=== PATIENT | female | born 1955 | race Caucasian/White ===

== ENCOUNTER 2019-06-29 09:02 | Outpatient (CLI) | payer MEDICARE, SELFPAY ==
--- NOTE | 2019-06-29 09:09 | MM_ITS ---
WS: [id number] BILATERAL DIGITAL SCREENING MAMMOGRAPHY WITH CAD CLINICAL INFORMATION: SCREENING HISTORY: Sore left breast COMPARISON: TECHNIQUE: Bilateral CC and MLO views. FINDINGS: The breasts are composed of heterogeneous fibroglandular density tissue, which can limit the detectio n of small underlying mass lesions. No suspicious mass, asymmetry, calcifications, or architectural d istortion. No evidence of malignancy. MM/[place] [id number] IMPRESSION: BI-RADS: 1-Negative FOLLOW UP: 1 Year Follow-up Recommend return to annual screening mammography.
== END 2019-06-29 09:03 | disposition home or self-care (01) ==
LOC: RADSHAW 09:07
PROVIDERS: Family Provider Internal Medicine; PCP Internal Medicine; Visit Provider Internal Medicine
DX: Z12.31 Encounter for screening mammogram for malignant neoplasm of breast (principal)
CPT/HCPCS: 77067

== ENCOUNTER → 2019-12-26 11:31 | Outpatient (BNVA) | payer MEDICARE, SELFPAY | PROVIDERS: Family Provider Internal Medicine; PCP Internal Medicine; Visit Provider Nurse Practitioner Family | DX: J06.9 Acute upper respiratory infection, unspecified (principal); Z20.828 Contact with and (suspected) exposure to other viral communicable diseases | CPT/HCPCS: 87635 ==

== ENCOUNTER 2020-04-24 14:19 | Outpatient (CLI) | payer MEDICARE, SELFPAY ==
--- NOTE | 2020-04-24 14:44 | XR_ITS ---
WS: [id number] Exam: XR DEXA axial skeleton* [id number] Date/Time of Exam: 04/24/2020 2:44 PM Reason For Exam: ASYMPTOMATIC POSTMENOPAUSAL STATUS DEXA BONE DENSITOMETRY [employer] The L1-L4 bone mineral density measures 0.874 g/cm2. This corresponds to a T score of -2.6 and Z scor e of -1.3. Left femoral neck bone mineral density measures 0.808 g/cm2. This corresponds to T score of -1.6 and Z score of -0.6. Right femoral neck bone mineral density measures 0.855 g/cm2. This corresponds to a T score of -1.2 a nd Z score of -0.2. Mean femoral neck bone mineral density measures 0.831 g/cm2. This corresponds to a T score of -1.4 an d Z score of -0.4 XR/XR DEXA axial skeleton* [id number] IMPRESSION: Bone mineral density lies in the osteoporotic range. Refer to detailed summary .
== END 2020-04-24 14:20 | disposition home or self-care (01) ==
PROVIDERS: PCP Internal Medicine; Visit Provider Internal Medicine
DX: Z78.0 Asymptomatic menopausal state (principal)
CPT/HCPCS: 77080

== ENCOUNTER 2020-11-23 08:37 | Outpatient (CLI) | payer MEDICARE, OTHER, SELFPAY ==
--- NOTE | 2020-11-23 08:42 | MM_ITS ---
WS: [id number] Exam: [place] [id number] Date/Time of Exam: 11/23/2020 8:50 AM Reason For Exam: SCREENING VIEWS: MLO and CC views both breasts. Comparison made with prior exam of 12/05/2016, 12/26/2017 and 06/29/2019. Findings: There was no sign of mass, architectural distortion or suspicious calcification in either breast. Sc attered fibroglandular densities MM/[place] [id number] Impression: BI-RADS: 2-Benign FOLLOW-UP: 1 Year Follow-up This mammogram was also analyzed by the Computer Aided Detection System [employer].
--- NOTE | 2020-11-23 09:30 | US_ITS ---
WS: [id number] ULTRASOUND PELVIS TECHNIQUE: Transabdominal and transvaginal. ULTRASOUND PELVIS TECHNIQUE: Transabdominal. CLINICAL INFORMATION: POSTMENOPAUSAL BLEEDING LMP: : No. COMPARISON: None. FINDINGS: Prior hysterectomy. Hysterectomy bed is normal. No cystic or solid lesions. Adnexa: No adnexal masses. Neither ovary is visualized. Free fluid: None. Other findings: None. US/US pelvic with transvaginal IMPRESSION: 1. Prior hysterectomy. 2. Neither ovary is visualized. No adnexal masses. 3. No other significant findings.
== END 2020-11-23 08:38 | disposition home or self-care (01) ==
PROVIDERS: PCP Internal Medicine; Visit Provider Internal Medicine
DX: Z12.31 Encounter for screening mammogram for malignant neoplasm of breast (principal); N95.0 Postmenopausal bleeding; Z90.710 Acquired absence of both cervix and uterus
CPT/HCPCS: 76830; 76856; 77067

== ENCOUNTER 2021-11-27 08:06 | Outpatient (CLI) | payer MEDICARE, OTHER, SELFPAY ==
--- NOTE | 2021-11-27 08:16 | MM_ITS ---
WS: [id number] SCREENING DIGITAL BREAST TOMOSYNTHESIS MAMMOGRAM WITH CAD HISTORY: SCREENING COMPARISON: 11/23/2020 and 06/29/2019 Bilateral CC and MLO with tomosynthesis views submitted. Synthetic mammography reviewed. Computer aid ed detection analyzed. Breast composition: There are scattered areas of fibroglandular density. No suspicious masses, microc alcifications or architectural distortion. MM/[place] [id number] IMPRESSION: BI-RADS: 1-Negative FOLLOW UP: 1 Year Follow-up
== END 2021-11-27 08:07 | disposition home or self-care (01) ==
LOC: RAD 08:06
PROVIDERS: PCP Internal Medicine; Visit Provider Internal Medicine
DX: Z12.31 Encounter for screening mammogram for malignant neoplasm of breast (principal)
CPT/HCPCS: 77063; 77067

== ENCOUNTER 2022-10-30 12:55 | Outpatient (CLI) | payer MEDICARE, OTHER, SELFPAY ==
--- NOTE | 2022-10-30 13:14 | XR_ITS ---
WS: [id number] SCREENING DEXA SCAN [facility] CLINICAL INFORMATION: OSTEOPOROSIS COMPARISON: April 24, 2020 FINDINGS: The L1-L4 bone mineral density measures 1.009 g/cm2. This corresponds to a T score score of -1.4 and Z score of -0.3. Left femoral neck bone mineral density measures 0.820 g/cm2. This corresponds to a T score of -1.5 an d Z score of -0.5. Right femoral neck bone mineral density measures 0.879 g/cm2. This corresponds to a T score -1.0of an d Z score of 0.0. Mean femoral neck bone mineral density measures 0.850 g/cm2. This corresponds to a T score of -1.3 an d Z score of -0.3. XR/XR DEXA axial skeleton* [id number] IMPRESSION: Osteopenia lumbar spine. Osteopenia femoral necks. Patient's FRAX calculated 10 year probability for major osteoporotic fracture i s 12.0 % and osteoporotic hip fracture is 2.3%. Bone mineral density lumbar spine has increased 15.4% since 2019 Bone mineral density femoral necks increased 2.3% since 2019
== END 2022-10-30 12:56 | disposition home or self-care (01) ==
LOC: RAD 12:56
PROVIDERS: PCP Internal Medicine; Visit Provider Internal Medicine
DX: M81.0 Age-related osteoporosis without current pathological fracture (principal); M85.89 Other specified disorders of bone density and structure, multiple sites; Z13.820 Encounter for screening for osteoporosis
CPT/HCPCS: 77080

== ENCOUNTER 2023-01-16 10:45 | Outpatient (CLI) | payer MEDICARE, OTHER, SELFPAY ==
--- NOTE | 2023-01-16 11:01 | MM_ITS ---
WS: [id number] BILATERAL SCREENING DIGITAL TOMOSYNTHESIS MAMMOGRAM WITH CAD HISTORY: SCREENING COMPARISON: 11/27/2021 and 11/23/2020 Bilateral CC and MLO views with tomosynthesis and synthetic mammography submitted. Computer aided det ection analyzed. Breast composition: There are scattered areas of fibroglandular density. No suspicious masses, microc alcifications or architectural distortion. IMPRESSION: MM/[place] [id number] BI-RADS: 1-Negative FOLLOW UP: 1 Year Follow-up
== END 2023-01-16 10:46 | disposition home or self-care (01) ==
PROVIDERS: PCP Internal Medicine; Visit Provider Internal Medicine
DX: Z12.31 Encounter for screening mammogram for malignant neoplasm of breast (principal)
CPT/HCPCS: 77063; 77067

== ENCOUNTER → 2023-04-30 09:05 | Outpatient (BNVA) | payer MEDICARE, OTHER, SELFPAY | PROVIDERS: PCP Internal Medicine; Referring Provider Internal Medicine; Visit Provider Surgery | DX: K21.9 Gastro-esophageal reflux disease without esophagitis; K58.8 Other irritable bowel syndrome | CPT/HCPCS: 99204 ==

== ENCOUNTER 2023-05-22 05:48 | Day surgery (SDC) | payer MEDICARE, OTHER, SELFPAY ==
[2023-05-22 06:16] VITALS: BP 140/94; PULSE 91; RESP 18; TEMP 36.6; O2SAT 95; BMI 32.0
--- NOTE | 2023-05-22 06:23 | ANES.PREANE2 ---
Pre-Anesthetic Assessment Height/Weight: Height 1.57 m Weight 79.379 kg Temp Pulse Resp BP Pulse Ox O2 Del Method 97.8 F 91 18 140/94 95 Room Air 05/22/23 06:16 05/22/23 06:16 05/22/23 06:16 05/22/23 06:16 05/22/23 06:16 05/22/23 06:16 Preop Diagnosis: GERD/ screening Operation Date: 05/22/23 07:00 Proposed Procedures p [id number] egd [id number] colon G0121 screen colon A risk Z12.11 ,K21.9(Not Applicable) - Luisito Piper DO s Colonoscopy(Not Applicable) - Luisito Piper DO Familial anesthetic complications: None Was Beta Jorden taken within 24 hours: N/A Was Clonidine taken within 24 hours: N/A Last intake: Intake Last Liquid Date 05/21/23 Last Liquid Time 23:30 Last Solid Date 05/20/23 Last Solid Time 18:00 Social No alcohol and No tobacco Exam alert, oriented x 3, clear to auscultation bilaterally and regular rate & rhythm Airway Submandibular: within normal limits Cervical ROM: within normal limits Mallampati: Class III Dentition: full (Some crowns) History/ROS No significant history except as noted and No significant complaints Pulmonary Sleep Apnea CV/HEM Hypertension None reported Hepatic None reported GI Gastroesophageal Reflux Disease Chronic pancreatitis and IBS Metabolic Hyperlipidemia [facility] Fibromyalgia Neuropsych Anxiety, Depression, Headache and Neuropathy Anesthetic Plan ASA status: 3 Anesthesia: Anesthesia Evaluation, General and MAC Risk of > 500 ml blood loss (7ml/kg in children): No Medications/Allergies Home Medications Medication Instructions Recorded Confirmed Last Taken Type alendronate 70 mg tablet (Fosamax) 70 mg PO .weekly 11/19/20 05/20/23 05/19/23 History citalopram 20 mg tablet 20 mg PO DAILY 11/19/20 05/20/23 05/21/23 History fluticasone propionate 50 1 spray intranasal BID PRN stuffy 11/19/20 05/22/23 1 Week Ago History mcg/actuation nasal ~05/15/23 spray,suspension (Allergy Relief (fluticasone)) lisinopril 20 mg tablet 20 mg PO DAILY 11/19/20 05/20/23 05/21/23 History meclizine 25 mg tablet 25 mg PO Q8H PRN dizzy 11/19/20 05/22/23 1 Year Ago History ~05/22/22 nortriptyline 25 mg capsule 25 mg PO .h.s. 11/19/20 05/20/23 05/21/23 History trazodone 50 mg tablet 50 mg PO .h.s. 11/19/20 05/20/23 05/21/23 History atorvastatin 10 mg tablet 10 mg PO DAILY 04/30/23 05/20/23 05/21/23 History pantoprazole 40 mg tablet,delayed 40 mg PO BID 6 weeks #84 tabs 04/30/23 05/20/23 05/21/23 Rx release (Protonix) ibuprofen 100 mg tablet 100 mg PO DAILY PRN Pain, Mild 05/20/23 05/20/23 05/18/23 History Allergies Allergy/AdvReac Type Severity Reaction Status Date / Time codeine Allergy ADR-Nausea Verified 05/20/23 10:25 Sulfa (Sulfonamide Allergy ALGY-Rash Verified 05/20/23 10:25 Antibiotics) COUNT INCLUDES THE [facility] Anesthesia Medical History (Updated 04/30/23 @ 09:52 by Luisito Piper DO) Hypertension Fibromyalgia Chronic pancreatitis Osteoporosis Sciatica Irritable bowel syndrome Major depressive disorder, recurrent, moderate Surgical History (Updated 04/30/23 @ 09:52 by Luisito Piper DO) History of total abdominal hysterectomy 01/25/1994 Hx of salpingo-oophorectomy, bilateral entered in error Family History Mother CAD (coronary artery disease) Diabetes Hypertension Grandmother Uterine cancer Maternal Stroke Maternal Hypertension Maternal Family/Other Breast cancer Paternal Aunt Brother Diabetes Denies family history of Clotting disorder Hyperlipidemia Chronic kidney disease (CKD) Bleeding disorder Family history of premature coronary artery disease Thyroid disease Data Anesthesia Cardiac Studies: No Data to Display
[2023-05-22] MEDS: sodium chloride 0.9% 1,000 ML 30 ML IV (06:27)
--- NOTE | 2023-05-22 07:09 | W.PM.OPSUD ---
Surgery/Procedure H&P Update DATE OF PROCEDURE: May 22, 2023 DATE H&P PERFORMED: 04/30/23 H&P UPDATE INFORMATION: I have reviewed H&P completed within last 30 days, I have examined patient prior to procedure and No changes to prior documentation PREOP DIAGNOSIS: GERD/ screening PLANNED PROCEDURE: Operation Date: 05/22/23 07:00 Proposed Procedures p [id number] egd [id number] colon G0121 screen colon A risk Z12.11 ,K21.9(Not Applicable) - DO smita Maria Colonoscopy(Not Applicable) - Luisito Piper DO
[2023-05-22 07:40] VITALS: BP 142/70; PULSE 75; RESP 12; TEMP 36.1; O2SAT 96
[2023-05-22 07:53] VITALS: BP 137/72; PULSE 70; RESP 16; O2SAT 100
[2023-05-22 08:22] VITALS: BP 148/73; PULSE 71; RESP 16; O2SAT 100
--- NOTE | 2023-05-22 13:05 | ANE.PACU2 ---
Inpatient post-anesthesia follow up: Airway intact: Yes Vital signs: Temperature 97.0 F Pulse Rate 71 Respiratory Rate 16 Blood Pressure 148/73 Pulse Oximetry 100 Oxygen Delivery Me thod Room Air Oxygen Flow Rate Fraction of Inspir ed Oxygen Hydration adequate: Yes Nausea and vomiting: No Pain level: 2 Mental status: Baseline
== END 2023-05-22 08:30 | disposition home or self-care (01) ==
PROVIDERS: PCP Internal Medicine; Visit Provider Surgery
PROC: 0DJ08ZZ Inspection of Upper Intestinal Tract, Via Natural or Artificial Opening Endoscopic (ICD-10-PCS; CPT 43235; principal; 2023-05-22 07:00)
PROC: 0DJD8ZZ Inspection of Lower Intestinal Tract, Via Natural or Artificial Opening Endoscopic (ICD-10-PCS; CPT 45378; 2023-05-22 07:00)
DX: Z12.11 Encounter for screening for malignant neoplasm of colon (principal); K21.9 Gastro-esophageal reflux disease without esophagitis; K64.4 Residual hemorrhoidal skin tags; D12.8 Benign neoplasm of rectum; K20.90 Esophagitis, unspecified without bleeding; K29.50 Unspecified chronic gastritis without bleeding; K44.9 Diaphragmatic hernia without obstruction or gangrene; G47.30 Sleep apnea, unspecified; I10 Essential (primary) hypertension; E78.5 Hyperlipidemia, unspecified; M79.7 Fibromyalgia
CPT/HCPCS: 43239; 45385; 88305; J2704; J7030

== ENCOUNTER → 2023-06-08 09:16 | Outpatient (BNVA) | payer MEDICARE, OTHER, SELFPAY | PROVIDERS: PCP Internal Medicine; Visit Provider Surgery | DX: Z09 Encounter for follow-up examination after completed treatment for conditions other than malignant neoplasm (principal); K21.9 Gastro-esophageal reflux disease without esophagitis; D12.6 Benign neoplasm of colon, unspecified | CPT/HCPCS: 99214 ==

== ENCOUNTER 2024-07-20 09:20 | Outpatient (CLI) | payer MEDICARE, OTHER, SELFPAY ==
--- NOTE | 2024-07-20 09:22 | MM_ITS ---
WS: [id number] BILATERAL SCREENING DIGITAL TOMOSYNTHESIS MAMMOGRAM WITH CAD HISTORY: SCREENING COMPARISON: 01/16/2023, 11/27/2021 Bilateral CC and MLO views with tomosynthesis and synthetic mammography submitted. Computer aided detection analyzed. Breast composition: There are scattered areas of fibroglandular density. No suspicious masses, microcalcifications or architectural distortion. Few benign calcifications scattered within the RIGHT breast. MM/MM scr BI tomosynthesis [id number] IMPRESSION: BI-RADS: 2 - Benign. FOLLOW UP: 1 Year Follow-up
== END 2024-07-20 09:21 | disposition home or self-care (01) ==
LOC: RAD 09:21
PROVIDERS: PCP Internal Medicine; Visit Provider Internal Medicine
DX: Z12.31 Encounter for screening mammogram for malignant neoplasm of breast (principal); R92.323 Mammographic fibroglandular density, bilateral breasts; R92.1 Mammographic calcification found on diagnostic imaging of breast
CPT/HCPCS: 77063; 77067

== ENCOUNTER → 2024-08-23 09:04 | Outpatient (BNVA) | payer MEDICARE, OTHER, SELFPAY | PROVIDERS: PCP Internal Medicine; Visit Provider Nurse Practitioner Family | DX: L71.8 Other rosacea (principal); I78.8 Other diseases of capillaries; L73.8 Other specified follicular disorders; D36.11 Benign neoplasm of peripheral nerves and autonomic nervous system of face, head, and neck; D22.5 Melanocytic nevi of trunk; L81.4 Other melanin hyperpigmentation | CPT/HCPCS: 99204 ==